=== PATIENT | female | born 1990 | race Caucasian/White ===

== ENCOUNTER 2016-10-27 13:50 | Emergency (ER) | payer OTHER ==
[2016-10-27 14:43] VITALS: BP 116/74; PULSE 78; RESP 18; TEMP 98.4; O2SAT 98
--- NOTE | 2016-10-27 15:52 | UCPHY ---
H & P Patient Type: Established HPI/ROS: CHIEF COMPLAINT: Ongoing cough, shortness of breath HISTORY OF PRESENT ILLNESS: 18-year-old female who is 6 weeks presents to Urgent Care reporting ongoing symptoms of cough, and some chest tightness. Patient was diagnosed with influenza a on October 20. She was given Tamiflu but was advised by her motion graphics artist not take Tamiflu. Her fever has defervesced but she has an ongoing cough which is worse at night. She has been unable to sleep well. She has been eating and drinking normally. No vomiting. No diarrhea. Minimal body aches. Still continues to have some sore throat. Has been taking Robitussin for her cough without significant effects. REVIEW OF SYSTEMS: Aside from elements discussed in the HPI, a comprehensive 10-point review of systems was reviewed and is negative. PAST MEDICAL HISTORY: Patient is . 6 weeks. Status post IVF. SOCIAL HISTORY: Nonsmoker. VITAL SIGNS: see nurse's notes. Afebrile, normal saturation, normal heart rate. GENERAL: Well-developed, well-nourished, in no acute distress. Patient looks well. She is alert, conversant. HEENT: Atraumatic Eyes: PERRL, EOMI, no conjunctival injection. Ears: TM clear bilaterally. Nose: No discharge. Mouth: moist mucous membranes. Pharynx: no erythema, no exudates, no swelling, no abscess. Uvula is midline. NECK: Supple, no adenopathy, no meningismus, no tenderness. Negative Kernig's and Brudzinski's. LUNGS: Clear to auscultation bilaterally, no wheezes, rhonchi or rales. CARDIAC: Regular rate and rhythm, no rubs, murmurs or gallops. ABDOMEN: Soft, nontender, nondistended, bowel sounds normal. BACK: No CVA tenderness. EXTREMITIES: Normal, no edema, FROM. NEURO: Alert and oriented, grossly nonfocal. SKIN: Warm and dry, no rash. PSYCHIATRIC: Normal mentation, no agitation. Smoking Status: Never smoked Constitutional: Initial Vital Signs Temperature (C) 36.9 C 10/27/16 14:39 Heart Rate 78 10/27/16 14:39 Respiratory Rate 18 10/27/16 14:39 Blood Pressure 116/74 10/27/16 14:39 O2 Sat (%) 98 10/27/16 14:39 O2 Delivery Mode Room Air Allergies/Adverse Reactions: No Known Allergies Allergy (Verified 10/27/16 14:39) Home Medications: Medication Instructions Recorded Estrogens, Conjugated 10/20/16 Oseltamivir Phosphate [Tamiflu 75 75 mg PO BID #10 cap 10/20/16 mg (*)] Progesterone 10/20/16 AZITHROMYCIN [Z-PACK] 250 - 500 mg PO DAILY #6 tab 10/27/16 Albuterol [Proventil Inhaler HFA 1 - 2 puffs IH Q4H #1 mdi 10/27/16 (*)] Cephalexin [Keflex (*)] 500 mg PO TID #21 cap 10/27/16 Medical Decision Making ED Course/Re-evaluation: 26-year-old female presenting with a persistent cough after being diagnosed with influenza a. Patient is . Lung sounds are clear. She was placed on azithromycin and asked to follow up with her OBGYN. She was also given a prescription for meter dose inhaler which she has used at times in the past for her persistent cough. She was encouraged to push fluids. Differential Diagnosis: Differential diagnosis for the patient's cough was considered including but not limited to viral versus bacterial bronchitis, asthma, pulmonary emboli, upper respiratory infection, lower respiratory infection, and bronchospasm. Departure - Departure Disposition: Home, Routine, Self-Care Clinical Impression: Bronchitis, Cough Condition: Good Instructions: Acute Bronchitis (ED), Chronic Cough (ED), Cold Symptoms (ED) Additional Instructions: Please drink plenty of fluids and get plenty of rest. You been given 2 prescriptions for antibiotic. The 1st is azithromycin. It is listed as a category B. If your OBGYN would prefer that you do not take azithromycin, I have also provided with a prescription for Keflex. You have also been given a prescription for an albuterol meter dose inhaler. Please use 1-2 puffs up to 4 times a day to help control the cough. Referrals: Rashaun Knutson MD [Primary Care Provider] - As per Instructions Prescriptions: Cephalexin [Keflex (*)] 500 mg PO TID #21 cap Albuterol [Proventil Inhaler HFA (*)] 1 - 2 puffs IH Q4H #1 mdi AZITHROMYCIN [Z-PACK] 250 - 500 mg PO DAILY #6 tab - PQRS PQRS Measurement: Not applicable
== END 2016-10-27 16:00 | disposition home or self-care (01) ==
LOC: CED 13:50
DX: O99.511 Diseases of the respiratory system complicating pregnancy, first trimester (principal); J11.1 Influenza due to unidentified influenza virus with other respiratory manifestations; Z3A.01 Less than 8 weeks gestation of pregnancy
CPT/HCPCS: 99214-PO; G0463-PO

== ENCOUNTER 2017-09-17 15:19 | Emergency (ER) | payer OTHER ==
[2017-09-17] MEDS ORDERED: NS 1,000 ML IV ONE ×2 (15:36→15:56)
[2017-09-17] MEDS ORDERED: ONDANSETRON 4 MG/2 ML VIAL IVP ONE (15:37)
--- NOTE | 2017-09-17 15:51 | EDPHY ---
H & P Time Seen by Provider: 09/17/17 15:29 HPI/ROS: 27-year-old female presents complaining of nausea vomiting and diarrhea for approximately 36 hours, she is currently breast-feeding twin infants age 3 months. She has mild epigastric pain and otherwise not currently having abdominal pain. She states she is mostly concerned that she has become dehydrated which she notes has caused a decreased in her milk production. She has a prior history of cholecystectomy. Review of systems As per HPI General no fever no chills no weakness HEENT no eye pain no eye discharge. No eye redness, no sore throat Respiratory no cough, no shortness of breath Cardiac no chest pain, no peripheral edema GI positive diarrhea positive nausea positive vomiting, crampy abdominal pain no flank pain, no hematuria, no dysuria Musculoskeletal no myalgias, no joint pain Heme no easy bruising, no easy bleeding Endo no polyuria, no polydipsia Skin no rashes, no pruritus Neuro no syncope, no dizziness, no headaches Psych is no suicidal ideation, no homicidal ideation Past Medical/Surgical History: Cholecystectomy Social History: Denies alcohol or drug use Smoking Status: Never smoked Physical Exam: 27-year-old female alert and oriented no acute distress nontoxic appearance afebrile HEENT atraumatic normocephalic, extraocular muscles intact, anicteric Oropharynx negative for erythema negative exudate, tolerating her own secretions Neck supple no meningismus Lungs clear to auscultation bilaterally Heart regular rate and rhythm without murmur rub or gallop Abdomen nondistended normoactive bowel sounds soft nontender, mild epigastric tenderness no guarding no rebound Back no CVA tenderness, no step-offs, no spinal tenderness Extremities no cyanosis clubbing or edema Neuro alert and oriented, no focal deficits Constitutional: Initial Vital Signs Temperature (C) 36.6 C 09/17/17 15:32 Heart Rate 98 09/17/17 15:32 Respiratory Rate 20 09/17/17 15:32 Blood Pressure 120/79 09/17/17 15:32 O2 Sat (%) 95 09/17/17 15:32 O2 Delivery Mode Room Air Allergies/Adverse Reactions: No Known Allergies Allergy (Verified 09/17/17 15:31) Home Medications: Medication Instructions Recorded NK [No Known Home Meds] 09/17/17 Medical Decision Making ED Course/Re-evaluation: Patient seen and evaluated for nausea vomiting diarrhea. Patient requested Zofran and was given Zofran 4 mg IV push. Educated that there are no studies on Zofran and and that she may choose to pump and dump for 24 hours Given 2 L IV normal saline with market her relief. Impression Gastroenteritis Dehydration Plan DC home Follow-up with PCP - Data Points Laboratory Results: Laboratory Results 09/17/17 15:34 09/17/17 15:34 Medications Given: Discontinued Medications Sodium Chloride (Ns) 1,000 mls @ 0 mls/hr IV ONCE ONE PRN Reason: Wide Open Stop: 09/17/17 15:37 Last Admin: 09/17/17 15:41 Dose: 1,000 mls Sodium Chloride (Ns) 1,000 mls @ 0 mls/hr IV ONCE ONE PRN Reason: Wide Open Stop: 09/17/17 15:57 Last Admin: 09/17/17 16:22 Dose: 1,000 mls Ondansetron HCl (Zofran) 4 mg IVP EDNOW ONE Stop: 09/17/17 15:38 Last Admin: 09/17/17 15:41 Dose: 4 mg Departure - Departure Disposition: Home, Routine, Self-Care Clinical Impression: Acute gastroenteritis Condition: Good Instructions: Gastroenteritis (ED) Referrals: Rashaun Knutson MD [Primary Care Provider] - As per Instructions
[2017-09-17 15:56] LABS: % IMMATURE GRANULYOCYTES 0.3 % (0.0-1.1); ABSOLUTE IMMATURE GRANULOCYTES 0.04 10^3/uL (0.00-0.10); ADD DIFF? NO; ADD MORPH? NO; ADD SCAN? NO; ATYPICAL LYMPHOCYTE FLAG 0 (0-99); FRAGMENT RBC FLAG 20 (0-99); HEMOGLOBIN 13.7 g/dL (12.6-16.3); LEFT SHIFT FLG 0 (0-99); LIPEMIA HEMOLYSIS FLAG 80 (0-99); MEAN CELL HEMOGLOBIN 23.6 pg (27.9-34.1); MEAN CELL HEMOGLOBIN CONCENTR. 31.9 g/dL (32.4-36.7); MEAN CELL VOLUME 74.1 fL (81.5-99.8); MEAN PLATELET VOLUME 9.4 fL (8.7-11.7); PLATELET CLUMPS FLAG 0 (0-99); PLATELET COUNT 383 10^3/uL (150-400)
[2017-09-17 16:04] LABS: ALANINE AMINOTRANSFERASE 37 IU/L (9-52); ALBUMIN 4.8 g/dL (3.5-5.0); ALKALINE PHOSPHATASE 127 IU/L (38-126); ANION GAP 18 mEq/L (8-16); ASPARTATE AMINOTRANSFERASE 24 IU/L (14-46); BILIRUBIN,TOTAL 0.3 mg/dL (0.1-1.4); CALCIUM 9.8 mg/dL (8.5-10.4); CARBON DIOXIDE 21 mEq/l (22-31); CHLORIDE 104 mEq/L (97-110); CREATININE 0.6 mg/dL (0.6-1.0); GLOMERULAR FILTRATION RATE > 60; GLUCOSE 103 mg/dL (70-100); POTASSIUM 4.5 mEq/L (3.5-5.2); SODIUM 143 mEq/L (134-144)
[2017-09-17 17:42] VITALS: BP 115/67; PULSE 89; RESP 18; TEMP 98.1; O2SAT 96
== END 2017-09-17 17:51 | disposition home or self-care (01) ==
LOC: CED 15:19
DX: K52.9 Noninfective gastroenteritis and colitis, unspecified (principal); Z90.49 Acquired absence of other specified parts of digestive tract
CPT/HCPCS: 80053-PO; 83690-PO; 85025-PO; 96374; J2405